=== PATIENT | female | born 1945 | race Caucasian/White ===

== ENCOUNTER → 2023-08-07 07:51 | Outpatient (REF) | payer MEDICARE, BC, SELFPAY | LOC: DHCBC/DCA 07:51 | PROVIDERS: ATTENDING PHYSICIAN Internal Medicine Cardiovascular Disease; FAMILY PHYSICIAN Family Medicine | DX: I25.10 Atherosclerotic heart disease of native coronary artery without angina pectoris (principal); I20.9 Angina pectoris, unspecified | CPT/HCPCS: 78452; 93017; A9500; J2785 ==

== ENCOUNTER → 2023-08-14 08:03 | Outpatient (REF) | payer MEDICARE, SELFPAY | LOC: DHCBS HW 08:03 | PROVIDERS: ATTENDING PHYSICIAN Internal Medicine Cardiovascular Disease; FAMILY PHYSICIAN Internal Medicine Cardiovascular Disease | DX: I25.10 Atherosclerotic heart disease of native coronary artery without angina pectoris (principal); I20.9 Angina pectoris, unspecified | CPT/HCPCS: 93306 ==

== ENCOUNTER → 2023-09-02 13:38 | Outpatient (REF) | payer MEDICARE, SELFPAY | LOC: HWRAD 13:38 | PROVIDERS: ATTENDING PHYSICIAN Obstetrics & Gynecology; FAMILY PHYSICIAN Family Medicine | DX: N20.0 Calculus of kidney (principal) | CPT/HCPCS: 76770 ==

== ENCOUNTER → 2023-11-13 15:21 | Outpatient (REF) | payer MEDICARE, BC, SELFPAY | LOC: HWRAD 15:21 | PROVIDERS: ATTENDING PHYSICIAN Internal Medicine Endocrinology, Diabetes & Metabolism; FAMILY PHYSICIAN Family Medicine; OTHER PHYSICIAN Obstetrics & Gynecology Gynecology | DX: M81.0 Age-related osteoporosis without current pathological fracture (principal) | CPT/HCPCS: 77080 ==

== ENCOUNTER → 2023-12-11 09:00 | Outpatient (REF) | payer MEDICARE, BC, SELFPAY | LOC: DHSLP 09:00 | PROVIDERS: ATTENDING PHYSICIAN Internal Medicine; FAMILY PHYSICIAN Family Medicine | DX: G47.33 Obstructive sleep apnea (adult) (pediatric) (principal); R09.02 Hypoxemia | CPT/HCPCS: 95800 ==

== ENCOUNTER 2024-01-13 06:30 | Day surgery (SDC) | payer MEDICARE, BC, SELFPAY ==
[2024-01-13] VITALS (13 sets, daily range): BP systolic 119–146; BP diastolic 69–104; BMI 30.2
[2024-01-13 07:23] LABS: % Basophils 0.6 % (0-2); % Eosinophils 3.9 % (0-6); % Immature Granulocytes 0.5 % (0-0.5); % Lymphocytes 25.8 % (20.5-51.1); % Monocytes 12.8 % (1.7-9.3); % Neutrophils 56.4 % (42.2-75.2); Absolute Eosinophils 0.3 10^3/uL (0-0.7); Absolute Lymphocytes 1.7 10^3/uL (1.2-3.4); Absolute Monocytes 0.8 10^3/uL (0.1-0.6); Absolute Neutrophils 3.6 10^3/uL (1.4-6.5); Hematocrit 31.5 % (37.0-47.0); Hemoglobin 11.3 g/dL (12.0-16.0); Mean Corp Hgb Conc. 35.9 g/dL (33.0-37.0); Mean Corpuscular Hgb 35.2 pg (27.0-31.0); Mean Corpuscular Volume 98.1 fL (81.0-99.0); Mean Platelet Volume 10.2 fL (7.4-10.4); Nucleated Red Blood Cells % 0 %; Platelet Count 301 10^3/uL (130-400); Red Blood Cell Count 3.21 10^6/uL (4.20-5.40); Red Cell Dist. Width 15.5 % (11.5-14.5); White Blood Cell Count 6.4 10^3/uL (4.8-10.8)
[2024-01-13] MEDS: LOW STRENGTH ASPIRIN 81 MG PO (07:24)
[2024-01-13 08:02] LABS: Blood Urea Nitrogen 21 mg/dl (7-17); Calcium 9.7 mg/dl (8.4-10.2); Carbon Dioxide 30 mmol/L (22-30); Chloride 99 mmol/L (98-107); Estimated Creatinine Clearance 60 ml/min; Glucose 107 mg/dl (70-99); Potassium 3.3 mmol/L (3.5-5.1); Sodium 136 mmol/L (135-145); eGFR > 60.00
[2024-01-13 09:17] LABS: ACT-LR - POC 226 Seconds (116-155)
[2024-01-13 09:25] LABS: ACT-LR - POC 255 Seconds (116-155)
[2024-01-13 09:47] LABS: ACT-LR - POC 300 Seconds (116-155)
[2024-01-13 10:00] LABS: ACT-LR - POC 287 Seconds (116-155)
--- NOTE | 2024-01-13 10:31 | ITS.CL.CATH ---
[facility] - Catheterization
Cardiac Catheterization
Procedure Report:
LEFT HEART CATH AND CORONARY INTERVENTION
Date of Procedure: January 13, 2024
Referring: Dr. Beatrice Guerra
PROCEDURES:
1. Left heart catheterization with coronary and single-plane left ventriculography
2. Hemodynamic assessment of LAD, ramus intermedius, and circumflex using a [place] Omni wire.
INDICATION: This is a 78-year-old female with a past medical history notable for hypertension and hyperlipidemia. She experienced a few episodes of substernal chest tightness and has not experienced any recurrence in symptoms since increasing her
isosorbide, however, she continues to report exertional dyspnea. A recent Lexiscan Myoview stress study in July 2023 did not demonstrate significant ischemia. However, in the setting of worsening symptoms the decision was made to proceed with
left heart catheterization to reevaluate coronary anatomy
ACCESS: Right radial artery, 6 [place] sheath
HEMODYNAMICS (mmHg):
AO (s/d, m) : 129/64, 92
LV (s/d) : 133/12
LVEDP : 22
CORONARY FINDINGS
Dominance: Right
LEFT MAIN: Normal
LEFT ANTERIOR DESCENDING: The LAD arises normally from the left main and runs in the anterior interventricular groove. There is a 40% stenosis in the proximal-mid LAD at the origin of the first diagonal branch which arises very proximally from the
LAD. The mid LAD beyond the second diagonal branch has a 40% tubular narrowing and focal 60% stenosis. The mid to distal LAD has only minor irregularities.
RAMUS: The ramus intermedius is a' small-medium caliber vessel that has minor ostial narrowing and no focal obstructive stenosis. The origin of the ramus was never well-visualized, however, the iFR with the Omni wire in the mid portion of the ramus
intermedius serially measured 1.0
CIRCUMFLEX: The circumflex has an acute origin from the distal left main with associated 30% ostial narrowing. The iFR in the mid circumflex measured above the ischemic threshold at 0.98, 0.97, and 0.97
RIGHT CORONARY: The right coronary artery is a medium caliber dominant vessel. There is a 20% proximal RCA tapering with no pressure dampening on engagement of a 6 [place] diagnostic catheter. The remainder of the RCA has only minor luminal
irregularities over its course. The PDA and posterolateral branch appear widely patent.
VENTRICULOGRAPHY: Left ventriculography is performed in an MEDINA projection. At the digital single-plane left ventricular ejection fraction is estimated at 60%
HEMODYNAMIC ASSESSMENT OF THE LAD, RAMUS, AND CIRCUMFLEX WITH A [place] OMNI WIRE: The origin of the left main was cannulated with a 6 Fr EBU 3.0 guide catheter. Intravenous heparin was administered and the ACT was followed during the procedure.
Two hundred micrograms of intracoronary nitroglycerin was administered through the guide catheter. A [place] Omni wire was advanced to the guide catheter tip and normalized to guide catheter pressure. The Omni wire was then carefully manipulated
across the stenosis in the proximal-mid and mid LAD where the iFR 6 just below the ischemic threshold at 0.88, 0.88 and 0.87. A pullback gradient in the iFR was measured with the large step up noted across the more distal of the LAD stenosis and a
minor step up noted across the more proximal lesion with normalization near the guide catheter. The Omni wire was redirected to the ramus where the iFR serially measured 1.0, 1.0, and 1.0. The Omni wire was then withdrawn and redirected to the
circumflex where the iFR serially measured above the ischemic threshold at 0.98, 0.97, and 0.97. The Omni wire was withdrawn to the guide catheter confirming no significant baseline draft.
ANGIOPLASTY PROCEDURE DETAIL: The hemodynamic data was reviewed and the decision was made to proceed with stenting of the mid LAD across the region where the pullback measurement suggested the most significant of the LAD narrowing. Intravenous
heparin was administered and the ACT was followed throughout the procedure. A BMW guidewire crossed the more proximal and distal lesions and the tip of the wire was advanced to the apical LAD. Primary stenting was performed with implantation of a
3.0 x 22 mm [place]ennys stent that was implanted at nominal pressures then postdilated to high pressures with a 3.0 mm noncompliant balloon to 18 tessie.
RADIATION SUMMARY: Fluoro Time (min): 13.7, Dose (mGy): 767, DAP (Gy.cm2) : 49.5
CONCLUSIONS
1. Successful stenting of the mid LAD with a 3.0 x 22 mm [place] stent that was implanted at nominal pressures and postdilated to 18 tessie with a 3.0 mm noncompliant balloon
2. Moderate coronary disease in the proximal-mid LAD and near the ostium of the circumflex. The iFR in the circumflex measured above the ischemic threshold. The stenosis in the LAD was found to be hemodynamically stable with the largest step up
in Pd/Pa noted across the more distal lesion.
3. Preserved LV systolic function
RECOMMENDATIONS
1. Uninterrupted dual antiplatelet therapy for 6 months with aspirin and clopidogrel
2. High intensity statin for goal LDL cholesterol closer to 55 mg/dL
3. Aggressive blood pressure
Copy to: Dr. Beatrice Guerra
--- NOTE | 2024-01-13 14:53 | W.PN.UPDATE ---
Update Note
Progress Note Update
78 yo WF s/p PCI LAD (same day). She feels good, no cp, sob, marlon diet, voiding, R rad site with TR band, EKG SR no ST changes. She will be on DAPT ASA/Plavix. Cardiac rehab c/s. She will f/u DCA in 1 mo. SHe is for d/c home after 3pm if rad site
stable.
CONCLUSIONS
1. Successful stenting of the mid LAD with a 3.0 x 22 mm Dennys stent that was implanted at nominal pressures and postdilated to 18 tessie with a 3.0 mm noncompliant balloon
2. Moderate coronary disease in the proximal-mid LAD and near the ostium of the circumflex. The iFR in the circumflex measured above the ischemic threshold. The stenosis in the LAD was found to be hemodynamically stable with the largest step up
in Pd/Pa noted across the more distal lesion.
3. Preserved LV systolic function
RECOMMENDATIONS
1. Uninterrupted dual antiplatelet therapy for 6 months with aspirin and clopidogrel
2. High intensity statin for goal LDL cholesterol closer to 55 mg/dL
3. Aggressive blood pressure
Copy to: Dr. Beatrice Guerra
[2024-01-13] MEDS: KCL 20 MEQ PO (15:37)
== END 2024-01-13 15:52 | disposition home or self-care (01) ==
LOC: CATH 06:30
PROVIDERS: ATTENDING PHYSICIAN Internal Medicine Interventional Cardiology; FAMILY PHYSICIAN Family Medicine; OTHER PHYSICIAN Internal Medicine Cardiovascular Disease
DX: I25.10 Atherosclerotic heart disease of native coronary artery without angina pectoris (principal); E78.5 Hyperlipidemia, unspecified; I10 Essential (primary) hypertension; R07.89 Other chest pain; R06.09 Other forms of dyspnea; Z79.02 Long term (current) use of antithrombotics/antiplatelets; Z79.82 Long term (current) use of aspirin; Z79.890 Hormone replacement therapy; Z79.899 Other long term (current) drug therapy; K21.9 Gastro-esophageal reflux disease without esophagitis
CPT/HCPCS: 80048; 85025; 93005; 93458; 93571; 93572; C1725; C1769; C1874; C1887; C1894; C9600; Q9967

== ENCOUNTER 2024-02-13 06:50 | Outpatient (RCR) | payer MEDICARE, BC, SELFPAY | END 2024-02-13 23:59 | disposition home or self-care (01) | LOC: CRHB 06:50 | PROVIDERS: ATTENDING PHYSICIAN Internal Medicine Cardiovascular Disease | DX: I25.10 Atherosclerotic heart disease of native coronary artery without angina pectoris (principal); Z95.5 Presence of coronary angioplasty implant and graft | CPT/HCPCS: 93798; G0422; G0423 ==

== ENCOUNTER 2024-03-15 09:01 | Outpatient (RCR) | payer MEDICARE, BC, SELFPAY | END 2024-03-15 23:59 | disposition home or self-care (01) | LOC: CRHB 09:01 | PROVIDERS: ATTENDING PHYSICIAN Internal Medicine Cardiovascular Disease | DX: I25.10 Atherosclerotic heart disease of native coronary artery without angina pectoris (principal); Z95.5 Presence of coronary angioplasty implant and graft | CPT/HCPCS: 93798 ==

== ENCOUNTER 2024-03-24 08:47 | Outpatient (RCR) | payer MEDICARE, BC, SELFPAY | END 2024-03-29 10:38 | disposition home or self-care (01) | LOC: CRHB 08:47 | PROVIDERS: ATTENDING PHYSICIAN Internal Medicine Cardiovascular Disease | DX: I25.10 Atherosclerotic heart disease of native coronary artery without angina pectoris (principal); Z95.5 Presence of coronary angioplasty implant and graft | CPT/HCPCS: 93798 ==

== ENCOUNTER 2024-04-19 14:07 | Observation (INO) | payer MEDICARE, BC, SELFPAY ==
[2024-04-19 08:27] VITALS: BP 147/94
[2024-04-19 08:59] VITALS: BMI 30.2
--- NOTE | 2024-04-19 09:17 | ED.GENMED ---
History of Present Illness
General
Chief Complaint: Abdominal Pain
Source: patient
Exam Limitations: none
Time Seen by Provider: 04/19/24 08:46
Nursing documentation reviewed up to this point in time: agreed with
History of Present Illness
History of Present Illness:
Patient is a 78-year-old female with CAD recent stent January 2024 on Plavix, reflux, hypertension sleep apnea presents to the ER for evaluation. Patient reports last night she had pain across her back around 9 PM. She thought this was reflux. She
ate dinner around 6:30 PM. She typically has got reflux like this in the past and took Pepto-Bismol and it resolved last night. She had difficulty sleeping because of a recent new sleep apnea machine and was up when around 4 PM she had sudden
onset of pain which she describes as squeezing in the right side of her abdomen/back region under her rib. She reports since then she has had intermittent episodes that that occur every 5 minutes which last for about 10 seconds at a time which she
describes as squeezing. She does not feel this is in her abdomen. She points to her flank and under her rib area. She has a history of having prior cholecystectomy.
She denies any recent injury fever chills. She denies any chest pain.
She denies any urinary frequency urgency or dysuria. No prior history kidney stones
Past History
Past History
ED Past Medical History: GERD, HTN, Hypercholesterolemia, Hypothyroidism and Psychiatric
ED Past Surgical History: Cholecystectomy, Gynecological (Breast reduction) and Other (Thyroidectomy)
Social History
Tobacco: Non-smoker
Alcohol: None
Personal:
Living: with family
Employment: Retired
Family History
Family History: Other (Noncontributory)
Review of Systems
Review of Systems
Allergies reviewed?: Yes
All Other Systems: ROS reviewed and negative except as documented in HPI and ROS
Constitutional: Reports no symptoms; Denies fever, fatigue or chills
Respiratory: Denies trouble breathing
Cardiac: Denies chest pain
ABD/GI: Reports abdominal pain (pain right flank under rib region ); Denies vomiting
: Reports no symptoms; Denies frequency, incontinence, difficulty voiding or bleeding
Musculoskeletal: Reports back pain (had back pain last night )
Skin: Reports no symptoms
Neurological: Reports no symptoms
Hematologic/Lymphatic: Reports no symptoms
Psychiatric: Reports no symptoms
Phy Exam
General Physical Exam
General Presentation: no apparent distress
General age: appears stated age
General Skin: warm and dry
General Habitus: normal
General Mental: alert
General Hydration: appears well hydrated
Cardiovascular Exam
Cardiovascular Exam: regular rate/rhythm, no murmur and normal peripheral pulses
Pulmonary Exam
Pulmonary Exam: lungs clear, no respiratory distress and no rales
Gastrointestinal Exam
Gastrointestinal Exam: non tender and soft
Neurological Exam
Neurological Exam: alert and oriented x3
Musculoskeletal Exam
Musculoskeletal Exam: full ROM
Skin Exam
Skin Exam: normal color and warm/dry
Psychiatric Exam
Psychiatric Exam: normal mood/affect
Course
Orders/Labs/Results
Orders:
Orders
04/19/24 09:13
Electrocardiogram (*1) Stat
Reason for Study: Other
Other Reason for Exam: chest pain
Cardiac Monitoring- Treatment ONCE
EKG- Treatment ONCE
04/19/24 09:15
CT Abd/pel Without Iv Or Oral Urgent
Comment:
Reason For Exam: right sided abd pain/flank pain
04/19/24 09:18
Complete Blood Count/With Diff Urgent
Comprehensive Metabolic Panel Urgent
D-Dimer Urgent
Lipase Urgent
Troponin I Urgent
04/19/24 09:59
Urinalysis Reflex To Culture Urgent
Date Specimen was Collected: 04/19/24
Time Specimen was Collected: 09:58
Urine Microscopic Reflex Cult Urgent
Urine Culture Urgent
CUATE Source: U
Specimen Description:
Date Specimen was Collected: 04/19/24
Time Specimen was Collected: 09:58
04/19/24 12:13
MRI Abdomen [MR Abdomen W/o & W Contrast] Urgent
Comment: with MRCP
Reason For Exam: r/o CBD stone
OK for patient to be off Cardiac Monitoring for MRI: Yes
Recent pill cam endoscopy?: No
Abnormal Lab Results
04/19/24 04/19/24
09:18 09:59
RBC 3.37 L 10^6/uL
(4.20-5.40)
Hct 33.5 L %
(37.0-47.0)
MCV 99.4 H fL
(81.0-99.0)
MCH 35.6 H pg
(27.0-31.0)
RDW 14.9 H %
(11.5-14.5)
Absolute Lymphs (auto) 1.0 L 10^3/uL
(1.2-3.4)
Absolute Monos (auto) 0.8 H 10^3/uL
(0.1-0.6)
Immature Gran % 0.6 H %
(0-0.5)
Lymphocytes % 13.9 L %
(20.5-51.1)
Monocytes % 12.0 H %
(1.7-9.3)
Potassium 3.3 L mmol/L
(3.5-5.1)
Chloride 96 L mmol/L
(98-107)
BUN 21 H mg/dl
(7-17)
Glucose 120 H mg/dl
(70-99)
Total Bilirubin 1.4 H mg/dl
(0.2-1.3)
Alkaline Phosphatase 129 H U/L
(38-126)
Leukocyte Esterase Rfl 1+ A
(Negative)
04/19/24 09:18
04/19/24 09:18
Vital Signs
Initial and Last Documented VS:
Initial Vital Signs
Temp Pulse Resp BP Pulse Ox
98.6 F 84 16 147/94 95
04/19/24 08:27 04/19/24 08:27 04/19/24 08:27 04/19/24 08:27 04/19/24 08:27
Last Documented Vital Signs
Temp Pulse Resp BP Pulse Ox
98.6 F 73 18 130/67 93
04/19/24 08:27 04/19/24 12:27 04/19/24 12:27 04/19/24 12:27 04/19/24 12:27
MDM/Problems Addressed
Differential Diagnosis Includes:
not limited to: PE renal colic, less likely cad , stone in biliary duct
MDM/Problems Addressed:
78-year female presents to the ER complaining of pain to the right side Underneath her rib area off and on since last night. It is intermittent. She does have history of cholecystectomy, on e xam she is nontender. CAT scan however does show
increasing common bile duct of 12 mm which is slightly greater than 20 of 7 and her bilirubin is slightly up at 1.4. She has a cyst from her left kidney which is known. Patient denies any fever chills she is afebrile with normal white count. She
did have an episode of back pain last night does have a history of CAD and troponin was done and negative she denies any shortness of breath D-dimer also negative. Vital signs stable. She is afebrile Case reviewed with Dr. Navarro , physician did
see pt.
*Radiology
Radiology exam reviewed: radiology read reviewed
*Pulse Oximetry
Patient hypoxic: no
*Critical Care Note
Total Time (30-74mins, 75-104mins- exclusive of procedures): Not Applicable
Patient Management
Discussion with other providers: Director Banking (Gi DR Navarro )
ED Attending Note
-
Portions of this chart may have been created with voice recognition software.� Occasional wrong word or��sound alike� substitutions may have occurred due to the inherent limitations of voice recognition software.
Discharge Plan
Departure
Patient Disposition: Admit
Date of Disposition: 04/19/24
Time of Disposition: 13:07
Admit to: Med/Surg
Admit to doctor: hospitailst
Presentation/result/management discussed w/ accepting MD/DO: Hospitalist
Patient with high blood pressure during this ER visit?: Yes
Condition: Fair
Covid-19: Not Applicable
Discharge Problem:
Abdominal pain
Prescriptions:
No Action
multivitamin Tablet
1 tab PO DAILY
isosorbide mononitrate 30 mg Tablet Extended Release 24 Hr
60 mg PO DAILY
metoprolol succinate [Toprol XL] 100 mg Tablet Extended Release 24 Hr
100 mg PO DAILY
amlodipine 2.5 mg Tablet
5 mg PO DAILY
lorazepam 0.5 mg Tablet
0.5 mg PO TID PRN (Reason: ANXIETY)
nitroglycerin 0.4 mg Tablet, Sublingual
0.4 mg SUBLINGUAL Q5-15M PRN (Reason: CHEST PAIN)
hydrochlorothiazide 25 mg Tablet
25 mg PO DAILY
estradiol 0.01 % (0.1 mg/gram) Cream
1 g VAGINAL SUWE
rosuvastatin 20 mg Tablet
20 mg PO HS
duloxetine 60 mg Capsule,Delayed Release(Dr/Ec)
60 mg PO HS
cranberry extract [Ellura] 200 mg Capsule
200 mg PO DAILY
Probiotic 3 billion cell Capsule
3,000 mmu cells PO DAILY
aspirin 81 mg Capsule
81 mg PO HS
levothyroxine 137 mcg Tablet
137 mcg PO .6DAYSPERWEEK
Rx Instructions:
not sundays
cholecalciferol (vitamin D3) [Vitamin D3] 25 mcg (1,000 unit) Tablet,Chewable
25 mcg PO DAILY
clopidogrel 75 mg tablet
75 mg PO DAILY Qty: 90 10RF
pantoprazole 40 mg tablet,delayed release (DR/EC)
40 mg PO DAILY Qty: 90 10RF
Referrals:
Miguel Washington MD [Family Provider] -
Interventions
Interventions:
*Risk Screen - Suicide Last Done: 04/19/24 08:29
*General Assessment Last Done: 04/19/24 08:56
*Neglect/Abuse Screening Last Done: 04/19/24 08:29
ED- Fall Risk Assessment Last Done: 04/19/24 08:56
*ED COVID-19 Vaccine History Last Done: 04/19/24 08:29
DH-Ihvhgc-Ffwkxzygiy Assessment Last Done: 04/19/24 08:56
Discharge Date and Time
Print Language: BRUNEIAN
[2024-04-19 09:32] LABS: % Basophils 0.6 % (0-2); % Eosinophils 2.1 % (0-6); % Immature Granulocytes 0.6 % (0-0.5); % Lymphocytes 13.9 % (20.5-51.1); % Neutrophils 70.8 % (42.2-75.2); Absolute Eosinophils 0.2 10^3/uL (0-0.7); Absolute Monocytes 0.8 10^3/uL (0.1-0.6); Hematocrit 33.5 % (37.0-47.0); Mean Corp Hgb Conc. 35.8 g/dL (33.0-37.0); Mean Corpuscular Hgb 35.6 pg (27.0-31.0); Mean Corpuscular Volume 99.4 fL (81.0-99.0); Nucleated Red Blood Cells % 0.3 %; Platelet Count 321 10^3/uL (130-400); Red Blood Cell Count 3.37 10^6/uL (4.20-5.40); Red Cell Dist. Width 14.9 % (11.5-14.5)
[2024-04-19 09:41] LABS: D-Dimer 0.41 ug/mlFEU (0.00-0.50)
[2024-04-19 09:42] LABS: ALT (SGPT) 18 U/L (0-35); AST (SGOT) 29 U/L (14-36); Albumin 4.5 g/dl (3.5-5.0); Alkaline Phosphatase 129 U/L (38-126); Blood Urea Nitrogen 21 mg/dl (7-17); Calcium 9.3 mg/dl (8.4-10.2); Carbon Dioxide 29 mmol/L (22-30); Chloride 96 mmol/L (98-107); Estimated Creatinine Clearance 67 ml/min; Glucose 120 mg/dl (70-99); Lipase 87 U/L (23-300); Potassium 3.3 mmol/L (3.5-5.1); Sodium 138 mmol/L (135-145); Total Bilirubin 1.4 mg/dl (0.2-1.3); eGFR > 60.00
[2024-04-19 09:53] LABS: Troponin I < 0.012 ng/ml
[2024-04-19 10:10] LABS: Urine Albumin Negative (Neg - Trace); Urine Bilirubin Negative (Negative); Urine Character Clear (Clear); Urine Color Yellow; Urine Glucose Negative (Negative); Urine Ketone Negative (Negative); Urine Leukocyte 1+ (Negative); Urine Nitrite Negative (Negative); Urine Occult Blood Negative (Negative); Urine Urobilinogen Negative (Neg - 1+)
[2024-04-19 10:32] LABS: Urine Squamous Cell >30 /LPF (Few)
[2024-04-19 10:33] LABS: Urine Amorphous Seen
[2024-04-19 10:34] LABS: Urine Red Blood Cell 0-2 /HPF (0-2)
--- NOTE | 2024-04-19 11:01 | CON.GI ---
Consultation
-
Date/Time Consultation Requested: 04/19/2024
Date/Time Consultation Performed: 04/19/24 11.15 am
Requesting Provider: Jessica Hansen RN
Performing Provider: Sonia Lawson MD
Reason for Consultation: Abdominal pain with CBD dilataion
Medical History
Chief Complaint / HPI
Chief Complaint: Right sided abdominal pain
History of Present Illness:
The patient is a 78-year-old female who presented to ER this morning complaining from right sided abdominal pain. She reports that her pain started in this morning ~4.00 am and it was like a stabbing pain. Reported her pain is waxing and weaning and
repeats every 5-10 minutes and longs 5-10 seconds. She denies similar pain before, denies any color change with her stool and urine. She had her gallbladder removed in 1972 and denies any abdominal pain/surgery since then. Her last BM was this
morning and it was in a normal form. Reports she had her bowel movement changed in recent few weeks and has the feeling of she can not empty enough her bowels. She also reported having dark colored stool for a few days after she was started on
Plavix in January 2024 and it longed 3-4 days. Following, she did not have any stool color change. She also reported having back pain last night and her pain resolved after she took Pepto-Bismol and she has been experiencing this pain for years.
Additionally she reported that she was diagnosed with UTI in back February 2024 due needing to hold her urine during a vacation in [facility]. She denies having fever spikes/burning with urinating/increased frequency with urinating.
Past Medical History
Past Medical History: CAD (CAD recent stent January 2024 on Plavix), GERD, HTN, Hypercholesterolemia, Hypothyroidism and Psychiatric
Past Surgical History: Other ( Cholecystectomy, Gynecological (Breast reduction) and Other (Thyroidectomy))
Social History
Tobacco: Non-Smoker
Alcohol: None
Drug: None
Personal:
Living: With Family
Employment: Retired
Family History
Family History: Reviewed & Not Pertinent and Other (colon cancer running in the family )
Allergies / Home Medications
Allergy/AdvReac Type Severity Reaction Status Date / Time
JENNY Inhibitors Allergy COUGH Verified 01/13/24 07:07
cephalexin [From Keflex] Allergy Nausea Verified 01/13/24 07:07
melon Allergy SCRATCHY Verified 01/13/24 07:07
THROAT
nitrofurantoin Allergy Nausea / Verified 01/13/24 07:07
[From Macrobid] Vomiting
Sulfa (Sulfonamide Allergy Rash Verified 01/13/24 07:07
Antibiotics)
sulfamethoxazole Allergy Unknown Verified 01/13/24 07:07
trimethoprim Allergy Unknown Verified 01/13/24 07:07
valsartan [From Diovan] Allergy COUGH Verified 01/13/24 07:07
atorvastatin [From Lipitor] AdvReac MYALGIAS Verified 01/13/24 07:07
hydrocodone [From Vicodin] AdvReac Nausea / Verified 01/13/24 07:07
Vomiting
�Medication �Instructions �Recorded
amlodipine 2.5 mg tablet 5 mg PO DAILY 02/13/23
aspirin 81 mg capsule 81 mg PO HS 02/13/23
cranberry extract 200 mg capsule 200 mg PO DAILY 02/13/23
(Ellura)
duloxetine 60 mg capsule,delayed 60 mg PO HS 02/13/23
release
estradiol 0.01% (0.1 mg/gram) 1 g vaginal SUWE 02/13/23
vaginal cream
hydrochlorothiazide 25 mg tablet 25 mg PO DAILY 02/13/23
isosorbide mononitrate 30 mg 60 mg PO DAILY 02/13/23
tablet,extended release 24 hr
lactobacillus combination no.4 3 3,000 mmu cells PO DAILY 02/13/23
billion cell capsule (Probiotic)
lorazepam 0.5 mg tablet 0.5 mg PO TID PRN ANXIETY 02/13/23
metoprolol succinate 100 mg 100 mg PO DAILY 02/13/23
tablet,extended release 24 hr
(Toprol XL)
multivitamin 1 tab PO DAILY 02/13/23
nitroglycerin 0.4 mg sublingual 0.4 mg sublingual Q5-15M PRN CHEST 02/13/23
tablet PAIN
rosuvastatin 20 mg tablet 20 mg PO HS 02/13/23
levothyroxine 137 mcg tablet 137 mcg PO .6DAYSPERWEEK 02/24/23
cholecalciferol (vitamin D3) 25 25 mcg PO DAILY 01/13/24
mcg (1,000 unit) chewable tablet
(Vitamin D3)
clopidogrel 75 mg tablet 75 mg PO DAILY #90 tabs 01/13/24
pantoprazole 40 mg tablet,delayed 40 mg PO DAILY #90 tabs 01/13/24
release
Review of Systems
-
History Source: Patient
All other systems: A 12 pt ROS was Negative except as stated above in HPI
EENT: Reports No Symptoms
Respiratory: Reports No Symptoms
Cardiac: Reports No Symptoms
Abdomen/GI: Reports Pain
: Reports No Symptoms
Musculoskeletal: Reports No Symptoms
Skin: Reports No Symptoms
Neurological: Reports No Symptoms
Vital Signs
Temp Pulse Resp BP Pulse Ox
98.6 F 84 16 147/94 95
04/19/24 08:27 04/19/24 08:27 04/19/24 08:27 04/19/24 08:27 04/19/24 08:27
Physical Exam
Exam
General: Well Developed and Well Nourished
HEENT: Normocephalic, Anicteric and Moist Mucous Membranes
Respiratory: Clear
Cardiac: S1/S2, Regular Rhythm and Murmur
Breast: Deferred by me
GI: Soft, Non Tender, Non Distended and Tender (minimal to moderate tenderness on periumbilical area and on the mid-right sided abdominal area)
Musculoskeletal: No Clubbing and No Cyanosis
Skin: Warm
Neuro: Awake, Alert, Oriented and AO x 3
Psych: Calm
Results
WBC 7.0 10^3/uL (4.8-10.8) 04/19/24 09:18
Hgb 12.0 g/dL (12.0-16.0) 04/19/24 09:18
Hct 33.5 % (37.0-47.0) L 04/19/24 09:18
MCV 99.4 fL (81.0-99.0) H 04/19/24 09:18
Plt Count 321 10^3/uL (130-400) 04/19/24 09:18
Absolute Neuts (auto) 5.0 10^3/uL (1.4-6.5) 04/19/24 09:18
Sodium 138 mmol/L (135-145) 04/19/24 09:18
Potassium 3.3 mmol/L (3.5-5.1) L 04/19/24 09:18
Chloride 96 mmol/L (98-107) L 04/19/24 09:18
Carbon Dioxide 29 mmol/L (22-30) 04/19/24 09:18
BUN 21 mg/dl (7-17) H 04/19/24 09:18
Creatinine 0.7 mg/dL (0.6-1.0) 04/19/24 09:18
Calcium 9.3 mg/dl (8.4-10.2) 04/19/24 09:18
Total Bilirubin 1.4 mg/dl (0.2-1.3) H 04/19/24 09:18
AST 29 U/L (14-36) 04/19/24 09:18
ALT 18 U/L (0-35) 04/19/24 09:18
Alkaline Phosphatase 129 U/L (38-126) H 04/19/24 09:18
Lipase 87 U/L (23-300) 04/19/24 09:18
Diagnostic Image Results:
04/19/24: Abdominal/Pelvis CT
IMPRESSION:
Coronary artery calcifications and/or extensor present. Please correlate with symptoms of and risk factors for coronary artery disease, with further workup as clinically appropriate.
Lobulated cyst arising in the medial upper pole the left kidney, as seen on renal and bladder ultrasound from September 02, 2023.
Numerous colonic diverticula with no CT evidence for diverticulitis.
Status post cholecystectomy. Slight dilation of the common hepatic duct and common bile duct, measuring up to 12 mm. Measurement is slightly greater than examination of December 2006. If further imaging evaluation is desired, consideration for MRI of
the abdomen/MRCP.
Right-sided fat-containing indirect inguinal hernia, increased compared to examination of December 2006. No findings for strangulation or inflammation of the herniated fat.
No evidence for urinary tract calculi.
Bony degenerative changes as described.
Prior GI Procedures:
EGD: 07/03/17
Findings:
The examined duodenum was normal until the 2nd portion.
Patchy mildly erythematous mucosa was found in the gastric antrum.
Biopsies were taken with a cold forceps for histology.
A small hiatal hernia was present.
The Z-line was regular and was found 36 cm from the incisors.
No gross lesions were noted in the entire esophagus.
Impression: - Normal examined duodenum.
- Erythematous mucosa in the antrum. Biopsied.
- Small hiatal hernia.
- Z-line regular, 36 cm from the incisors.
- No gross lesions in esophagus.
Recommendation: - Await pathology results.
- Use Prilosec (omeprazole) 20 mg PO daily.
- Follow an antireflux regimen. Keep the head of the bed
upto 30 degree angle at bedtime (can use a mattress
elevator).
- Telephone GI clinic for pathology results in 2 weeks.
Colonoscopy: 11/05/22
Impression: - The examined portion of the ileum was normal.
- One 4 mm polyp in the transverse colon, removed with
a cold snare. Resected and retrieved.
- One 2 mm polyp in the rectum, removed with a jumbo
cold forceps. Resected and retrieved.
- Diverticulosis in the sigmoid colon.
Recommendation: - Await pathology results.
- Repeat colonoscopy in 5 years for surveillance.
- Telephone GI clinic for pathology results in 2 weeks.
- Resume previous diet.
- No ibuprofen, naproxen, or other non-steroidal
anti-inflammatory drugs for 5 days after polyp removal.
Assessment / Plan
-
Impression: The patient is a a 78-year-old female who had PMH of CAD with stents, GERD, HTN, Hypercholesterolemia, Hypothyroidism and Cholecystectomy in 1972. She presented to ER this morning complaining from right sided abdominal pain and
Pelvis/Abd CT showed common bile duct dilatation and no evidence for diverticulitis. Patient reported her pain is not consistent and it is waxing and weaning. She denies any pain on the upper abdominal area and points her pain mostly in the right
sided mid-abdominal area. She denies any color change with her stool/urine, denies constipation. WBC 7.0, Hgb 12.0, BUN 21, Cre 0.7, Na 138, K 3.3, TB 1.4 (mildly elevated comparing to previous results),AST 29, ALT 14, ALP 129 (likely at baseline).
Assessment /Plan
#Right Sided Abdominal Pain
-Hx of Cholecystectomy in 1972 no complaint since then
-No urine/stool color change
-TB mildly elevated,
-Pel/Abd CT: Shows dilatation in CBD
-MRI Abdomen with MRCP was planned
#Hx of Melena and GERD
-A few episodes of melena in January after started on Plavix and did not repeat since then.
-No signs of active GI bleeding:hgb 12
-Hx of GERD, last endoscopy in 2017
-Recommended to schedule an endoscopy at OP setting
-Last colonoscopy in 2022 with biopsy reporting:Hyperplastic polyp
-
-
Thank you for consultation and allowing me to participate in the patient's care. Please call the senior director of [employer] GI physician during the after hours with any questions or concerns.
[2024-04-19 12:27] VITALS: BP 130/67
--- NOTE | 2024-04-19 13:07 | HPS.HSE ---
Family Physician
-
Family Physician: Miguel Washington
Chief Complaint
-
Flank Pain
History of Present Illness
Patient is a 78 y/o female past medical history of CAD, HTN, and GERD who presents with right flank pain. Patient reports pains started around 4AM this morning. She reports a constant dull ache with occasional sharp stabbing 'zap'. She denies
nausea, vomiting, diarrhea or constipation. She denies fevers, sweats or chills.
Medical History
Past Medical History
Past Medical History: Reports Other
Additional Past Medical History:
Coronary Artery Disease s/p LAD Stent in December 2023
Essential Hypertension
Hyperlipidemia
GERD / Prior H. Pylori
Depression
Thyroid Cancer
Past Surgical History: Reports Other
Additional Past Surgical History:
Thyroidectomy
Cholecystectomy
Bladder Sling
Tonsillectomy
Breast Reduction
Oophorectomy
Social History
Tobacco: Non-smoker
Alcohol: None
Employment: Retired
Family History
Family History: Other (Father: Colon Cancer, Heart Disease; Mother: Ovarian Cancer, Heart Disease)
Allergies / Home Medications
Allergies reflects when Allergies were last updated in [employer].
Home Medications with original date entered in [employer]
Allergy/Medication List:
Allergies
Allergy/AdvReac Type Severity Reaction Status Date / Time
JENNY Inhibitors Allergy COUGH Verified 01/13/24 07:07
cephalexin [From Keflex] Allergy Nausea Verified 01/13/24 07:07
melon Allergy SCRATCHY Verified 01/13/24 07:07
THROAT
nitrofurantoin Allergy Nausea / Verified 01/13/24 07:07
[From Macrobid] Vomiting
Sulfa (Sulfonamide Allergy Rash Verified 01/13/24 07:07
Antibiotics)
sulfamethoxazole Allergy Unknown Verified 01/13/24 07:07
trimethoprim Allergy Unknown Verified 01/13/24 07:07
valsartan [From Diovan] Allergy COUGH Verified 01/13/24 07:07
atorvastatin [From Lipitor] AdvReac MYALGIAS Verified 01/13/24 07:07
hydrocodone [From Vicodin] AdvReac Nausea / Verified 01/13/24 07:07
Vomiting
Home Medications
duloxetine 60 mg capsule,delayed release 60 mg PO HS 02/13/23
estradiol 0.01% (0.1 mg/gram) vaginal cream 1 g vaginal SUWE 02/13/23
hydrochlorothiazide 25 mg tablet 25 mg PO DAILY 02/13/23
isosorbide mononitrate 30 mg tablet,extended release 24 hr 30 mg PO DAILY 02/13/23
lorazepam 0.5 mg tablet 0.5 mg PO TIDPRN PRN ANXIETY 02/13/23
metoprolol succinate 100 mg tablet,extended release 24 hr (Toprol XL) 100 mg PO DAILY 02/13/23
multivitamin 1 tab PO DAILY 02/13/23
nitroglycerin 0.4 mg sublingual tablet 0.4 mg sublingual [id number] PRN CHEST PAIN 02/13/23
rosuvastatin 20 mg tablet 20 mg PO HS 02/13/23
levothyroxine 137 mcg tablet 137 mcg PO SUMOTUWETHFR 02/24/23
cholecalciferol (vitamin D3) 25 mcg (1,000 unit) chewable tablet (Vitamin D3) 25 mcg PO DAILY 01/13/24
Lactobac no.2-Bifidobac no.1-S. thermo 112.5 billion cell capsule (Visbiome) 1 cap PO QPM 04/19/24
acetaminophen 325 mg tablet (Tylenol) 650 mg PO Q4HPRN PRN mild pain 04/19/24
amlodipine 5 mg tablet (Norvasc) 5 mg PO DAILY 04/19/24
aspirin 81 mg tablet,delayed release 81 mg PO QPM 04/19/24
clopidogrel 75 mg tablet 75 mg PO QPM 04/19/24
pantoprazole 40 mg tablet,delayed release 40 mg PO QPM 04/19/24
phenazopyridine 95 mg tablet 95 mg PO QPM 04/19/24
Review of Systems
-
A 12 point ROS was completed and negative except as noted: Yes
Constitutional: Denies Fever or Chills
Respiratory: Denies Cough or Trouble Breathing
Cardiac: Denies Chest Pain or Palpitations
Abdomen/GI: Reports See HPI
Physical Exam
Vital Signs
Vital Signs
Temp Pulse Resp BP Pulse Ox
98.6 F 73 18 130/67 93
04/19/24 08:27 04/19/24 12:27 04/19/24 12:27 04/19/24 12:27 04/19/24 12:27
Physical Exam
General: Comfortable and Conversant
HEENT: Anicteric and Moist mucous membranes
Respiratory: Clear and Non Labored Respirations
Cardiac: S1/S2 and Regular Rhythm
GI: Soft, Non Tender and Non Distended
Rectal: Deferred by Provider
Musculoskeletal: No Clubbing, No Cyanosis and No Edema
Skin: Warm and Dry
Neuro: Awake, Alert, Oriented and Nonfocal/grossly intact
Psych: Calm
Laboratory Results
-
04/19/24 09:18
04/19/24 09:18
Laboratory Results
Total Bilirubin 1.4 mg/dl (0.2-1.3) H 04/19/24 09:18
AST 29 U/L (14-36) 04/19/24 09:18
ALT 18 U/L (0-35) 04/19/24 09:18
Alkaline Phosphatase 129 U/L (38-126) H 04/19/24 09:18
Troponin I < 0.012 ng/ml 04/19/24 09:18
Lipase 87 U/L (23-300) 04/19/24 09:18
Impression/Plan
-
Abdominal/Flank Pain - Mildly elevated Total Bilirubin, and Mildly dilated CBD
-Consult GI
-Check Abd MRI/MRCP
-Allow clear liquids
Coronary Artery Disease s/p LAD Stent in December 2023
-Continue aspirin and Plavix
-Continue isosorbide mononitrate
Essential Hypertension
-Continue amlodipine and Toprol XL
-Hold HCTZ
Hyperlipidemia
-Continue Crestor
GERD / Prior H. Pylori
-Continue Protonix
Depression
-Continue duloxetine
Hx Thyroid Cancer s/p Thyroidectomy
-Continue levothyroxine
DVT Proph: SCDs
Code Status: Full Code
[2024-04-19] MEDS: KCL 40 MEQ PO (14:00)
--- NOTE | 2024-04-19 14:14 | W.PN.UPDATE ---
Update Note
Progress Note Update
This is an addendum to the H&P written by Daylin Gutierrez 04/19/2024. Patient seen and examined independently with PA.
78-year-old female past medical history of CAD with history of stent in January, gallstones status post prior cholecystectomy 1972, hypertension, GERD, hypercholesteremia, hypothyroidism, presenting for right upper quadrant abdominal pain rating to
her back starting this morning. She briefly had dark stool after starting Plavix after stent placement but this has resolved.
Labs show hypokalemia. Bilirubin of 1.4. CT abdomen pelvis shows slight dilatation of the common hepatic duct and common bile duct measuring 12 mm. Findings consistent for acute choledocholithiasis. GI consulted and recommended MRCP. Clear
liquid diet. Potassium repletion for hypokalemia secondary to thiazide. Hold hydrochlorothiazide for now.
[2024-04-19 15:30] VITALS: BP 162/86
[2024-04-19 16:21] VITALS: BMI 29.8
[2024-04-19] MEDS: VISBIOME 1 CAP PO (17:17)
[2024-04-19] MEDS: PLAVIX 75 MG PO (17:17)
[2024-04-19] MEDS: ASPIR LOW (ENTERIC COATED) 81 MG PO (17:17)
[2024-04-19] MEDS: PROTONIX 40 MG PO (17:17)
[2024-04-19] MEDS: CRESTOR 20 MG PO (21:35)
[2024-04-19] MEDS: TYLENOL 650 MG PO (21:35)
[2024-04-19] MEDS: CYMBALTA DELAYED RELEASE 60 MG PO (21:35)
[2024-04-19] MEDS: ATIVAN 0.5 MG PO (21:38)
[2024-04-19 23:50] VITALS: BP 100/50
--- NOTE | 2024-04-20 05:35 | W.PN.GI.CBS2 ---
Today's Communication / Plan
-
MRI/MRCP (-) for choledocholithiasis or other concern for sludge. Suspect previous dilatation in setting of CCY. Advance diet as tolerated, see rest of care as outlined below. GI team will sign-off. Please call back with any questions or concerns.
Assessment / Plan
-
#RUQ Abdominal Pain
#Hx of CCY
This is a 78 y.o female with past medical history of HTN, HLD, hypothyroidism, GERD, CAD (on ASA and plavix), and cholelithiasis s/p prior CCY who presented to the ED with RUQ abdominal pain around 0400 AM. Denies any prior similar symptoms or
nausea/vomiting. Intermittent but became progressively worse prompting her to come to the ED. No other fevers/chills or other constitutional symptoms. No other dark and/or bloody stools. She is on DAPT for her previous stent. Labs in ED revealed
mildly elevated T Bili 1.[address] Abd/pelvis with slight dilation of the CHD and CBD measuring up to 12 mm. She is intermediate risk for choledocholithiasis and advised MRI/MRCP. Otherwise, no signs of biliary sepsis and/or cholangitis.
S/p MRI/MRCP 04/19/24: Prior CCY, prominence of the CBD measuring 1.2 cm without evidence of choledocholithiasis or discrete obstruction, the intrahepatic bile ducts appear within normal limits; unremarkable pancreas with normal caliber of PD, normal
liver morphology with hepatic cysts. Repeat LFTs this AM reassuring.
Recommendations:
- May ADAT to low-fat diet, if tolerating diet this afternoon may be follow-up with GI as outpatient
- MRI/MRCP (-) for sludge and/or choledocholithiasis seen on recent imaging
- Suspect previous biliary ductal dilatation in setting of prior CCY as her symptoms were not typical for biliary colic
- LFTs without evidence of biliary obstruction only mildly T Bili. Can add-on direct and indirect for completion
- Pain control and [id number] PRN
- Rest of care per primary team
Discussed with primary internal medicine team this AM.
GI team will sign-off. Please call back with any questions or concerns.
Subjective
Subjective
Date of Service: April 20, 2024
- S/p MRI/MRCP 04/19/24: Prior CCY, prominence of the CBD measuring 1.2 cm without evidence of choledocholithiasis or discrete obstruction, the intrahepatic bile ducts appear within normal limits; unremarkable pancreas with normal caliber of PD,
normal liver morphology with hepatic cysts
- Repeat AM LFTs pending
- Otherwise, no acute events overnight
Feeling well this morning, denies any further discomfort early this AM or nausea/vomiting. No fevers, chills or other constitutional symptoms.
Objective
Data Reviewed
Laboratory Data:
Laboratory Results
Total Bilirubin 1.4 mg/dl (0.2-1.3) H 04/19/24 09:18
AST 29 U/L (14-36) 04/19/24 09:18
ALT 18 U/L (0-35) 04/19/24 09:18
Alkaline Phosphatase 129 U/L (38-126) H 04/19/24 09:18
Lipase 87 U/L (23-300) 04/19/24 09:18
Vital Signs and I&O:
Vital Signs
Temp Pulse Resp BP Pulse Ox
98.0 F 76 18 100/50 98
04/19/24 23:50 04/19/24 23:50 04/19/24 23:50 04/19/24 23:50 04/19/24 23:50
I&O
04/18/24 04/19/24 04/20/24
06:59 06:59 06:59
Intake Total 360 / 360
Balance 360 / 360
Physical Exam
Physical Exam
HEENT: Anicteric and Moist mucous membranes
Cardiology: Normal Sinus Rhythm
Pulmonary: Clear
GI: Soft, Non Distended and Non Tender
Extremities: No Edema
Neuro: Non Focal
[2024-04-20] MEDS: SYNTHROID 137 MCG PO (06:04)
[2024-04-20 06:28] LABS: Hematocrit 33.9 % (37.0-47.0); Hemoglobin 11.7 g/dL (12.0-16.0); Mean Corp Hgb Conc. 34.5 g/dL (33.0-37.0); Mean Corpuscular Hgb 35.1 pg (27.0-31.0); Mean Corpuscular Volume 101.8 fL (81.0-99.0); Mean Platelet Volume 10.2 fL (7.4-10.4); Platelet Count 292 10^3/uL (130-400); Red Blood Cell Count 3.33 10^6/uL (4.20-5.40); Red Cell Dist. Width 14.8 % (11.5-14.5); White Blood Cell Count 5.1 10^3/uL (4.8-10.8)
[2024-04-20 06:51] LABS: ALT (SGPT) 17 U/L (0-35); AST (SGOT) 31 U/L (14-36); Albumin 4.2 g/dl (3.5-5.0); Alkaline Phosphatase 90 U/L (38-126); Blood Urea Nitrogen 14 mg/dl (7-17); Calcium 9.3 mg/dl (8.4-10.2); Carbon Dioxide 30 mmol/L (22-30); Chloride 99 mmol/L (98-107); Estimated Creatinine Clearance 66 ml/min; Glucose 94 mg/dl (70-99); Magnesium 2.1 mg/dl (1.6-2.3); Potassium 3.9 mmol/L (3.5-5.1); Sodium 141 mmol/L (135-145); Total Bilirubin 1.6 mg/dl (0.2-1.3); Total Protein 6.7 g/dl (6.3-8.2); eGFR > 60.00
[2024-04-20] MEDS: TOPROL XL 100 MG PO (07:40)
[2024-04-20] MEDS: NORVASC 5 MG PO (07:40)
[2024-04-20] MEDS: VITAMIN D3 (cholecalciferol) 25 MCG PO (07:40)
[2024-04-20] MEDS: IMDUR (EXTENDED RELEASE) 30 MG PO (07:40)
[2024-04-20 07:45] VITALS: BP 144/78
--- NOTE | 2024-04-20 08:28 | W.PN.HOSP.TC ---
Today's Communication/Plan
-
Discharge planning today
Assessment / Plan
Assessment / Plan
Physical exam:
General: Well Developed, Well Nourished and No Apparent Distress
HEENT: Normocephalic, Atraumatic and Moist Mucous Membranes
Respiratory: Clear to Auscultation; Negative Wheezes, Rales or Rhonchi
Cardiac: Regular Rhythm and S1/S2
GI: Soft, Nontender and Nondistended
Musculoskeletal: No Clubbing, No Cyanosis and No Edema
Neuro: Awake, Alert and Oriented
Psych: Calm
A/P:
Abdominal/Flank Pain - Mildly elevated Total Bilirubin, and Mildly dilated CBD
-Consult GI appreciated. Discussed with GI on 04/20 and she is cleared for discharge today.
-Patient had low-fat diet without any problems.
-Checked Abd MRI/MRCP and no acute abnormality
-Discharge planning today
Coronary Artery Disease s/p LAD Stent in December 2023
-Continue aspirin and Plavix
-Continue isosorbide mononitrate
Essential Hypertension
-Continue amlodipine and Toprol XL
-Hold HCTZ
Hyperlipidemia
-Continue Crestor
GERD / Prior H. Pylori
-Continue Protonix
Depression
-Continue duloxetine
Hx Thyroid Cancer s/p Thyroidectomy
-Continue levothyroxine
DVT Proph: SCDs
Code Status: Full Code
Anticipated Discharge: Today
Subjective/Interval History
-
Date of Service: April 20, 2024
Patient denies abdominal pain
Objective Data
-
Labs:
Laboratory Results
04/20/24
05:31
WBC 5.1
Hgb 11.7 L
Hct 33.9 L
Plt Count 292
Sodium 141
Potassium 3.9
Chloride 99
Carbon Dioxide 30
BUN 14
Creatinine 0.7
Glucose 94
Calcium 9.3
Total Bilirubin 1.6 H
AST 31
ALT 17
Alkaline Phosphatase 90
Vital Signs:
Vital Signs
Temp Pulse Resp BP Pulse Ox
97.4 F 70 16 144/78 94
04/20/24 07:45 04/20/24 07:45 04/20/24 07:45 04/20/24 07:45 04/20/24 07:45
I&O
04/19/24 04/20/24 04/21/24
06:59 06:59 06:59
Intake Total 600 / 600
Balance 600 / 600
--- NOTE | 2024-04-20 09:46 | W.DCSUMMARY ---
Discharge Summary
Discharge Data
Date of Admission: 04/19/24
Date of Discharge: 04/20/24
-
Pending Results: No
Hospital Course
Patient is 78 years old female history of CAD, GERD, hypertension, hyperlipidemia, hypothyroidism, came into the hospital with abdominal pain. Patient had a prior history of CCY and no fevers or chills or GI bleed upon presentation but mildly
elevated T bilirubin and slight dilation of the CBD on CT of the abdomen. GI was consulted. Patient was started on clear liquid diet and no antibiotics were given. Patient also underwent MRCP. MRCP shows prominence of the common bile duct but no
evidence of choledocholithiasis or discrete obstruction and the intrahepatic bile ducts appear within normal limits. Patient was able to be advanced diet to low-fat diet and she tolerated without any problems. GI has cleared her for discharge
today. No other events were noticed. Patient has been discharged in stable condition today.
Discharge Plan
-
Patient Disposition: Home (Routine Discharge)
Discharge Diagnosis/Procedures: Abdominal pain. Hypokalemia. History of coronary artery disease
Diet: Low Fat
Activity: As tolerated
Blood Work: Please PCP to order CBC, CMP within 1 week
Referrals:
Miguel Washington MD [Family Provider] - in less than 1 week
Royer Navarro DO [Active] - in two to four weeks
Prescriptions:
Continued
multivitamin Tablet
1 tab PO DAILY
isosorbide mononitrate 30 mg Tablet Extended Release 24 Hr
30 mg PO DAILY
metoprolol succinate [Toprol XL] 100 mg Tablet Extended Release 24 Hr
100 mg PO DAILY
lorazepam 0.5 mg Tablet
0.5 mg PO TIDPRN PRN (Reason: anxiety )
nitroglycerin 0.4 mg Tablet, Sublingual
0.4 mg SUBLINGUAL [id number] PRN (Reason: chest pain )
hydrochlorothiazide 25 mg Tablet
25 mg PO DAILY
estradiol 0.01 % (0.1 mg/gram) Cream
1 g VAGINAL SUWE
rosuvastatin 20 mg Tablet
20 mg PO HS
duloxetine 60 mg Capsule,Delayed Release(Dr/Ec)
60 mg PO HS
levothyroxine 137 mcg Tablet
137 mcg PO SUMOTUWETHFR
cholecalciferol (vitamin D3) [Vitamin D3] 25 mcg (1,000 unit) Tablet,Chewable
25 mcg PO DAILY
acetaminophen [Tylenol] 325 mg Tablet
650 mg PO Q4HPRN PRN (Reason: mild pain)
amlodipine [Norvasc] 5 mg Tablet
5 mg PO DAILY
aspirin 81 mg Tablet,Delayed Release (Dr/Ec)
81 mg PO QPM
phenazopyridine 95 mg Tablet
95 mg PO QPM
Visbiome 112.5 billion cell Capsule
1 cap PO QPM
clopidogrel 75 mg tablet
75 mg PO QPM
pantoprazole 40 mg tablet,delayed release (DR/EC)
40 mg PO QPM
polyethylene glycol 3350 [Miralax] 17 gram Powder In Packet
17 g PO Q48H
Discharge Orders:
Discharge Patient (As Directed); Ordered 04/20/24
Ordered By: Raymon Ceballos
Discharge Date and Time
Discharge Date/Time: 04/20/24 10:37
Print Language: SETSWANA
[2024-04-20 09:54] LABS: Direct Bilirubin 0.3 mg/dl (0.0-0.4)
--- NOTE | 2024-04-20 10:39 | CM ---
Addendum entered by Yana Bee RN 04/20/24 10:46:
[facility] letter given reviewed signed on chart,
Original Note:
alert awake oriented patient who lives alone with no steps to enter and has an elevator.She is independent with driving and all ADLs.Offered Substance abuse counselling she declined but she did take a [facility] handout. Offered Vn she declined.She
will drive herself home today.
No adaptive devices.
No SNF /VN hx.
Pharmacy [facility] [place].
PCP Dr Miguel Washington
PLAN Home no needs
== END 2024-04-20 10:37 | disposition home or self-care (01) ==
LOC: 3 WEST ACU 14:07
PROVIDERS: Nurse Practitioner; Physician Assistant Medical; ADMITTING PHYSICIAN Hospitalist; ATTENDING PHYSICIAN Hospitalist; CONSULT PHYSICIAN Student in an Organized Health Care Education/Training Program; EMERGENCY PHYSICIAN Emergency Medicine; FAMILY PHYSICIAN Family Medicine
DX: K83.8 Other specified diseases of biliary tract (principal); R10.9 Unspecified abdominal pain; I25.10 Atherosclerotic heart disease of native coronary artery without angina pectoris; I10 Essential (primary) hypertension; G47.30 Sleep apnea, unspecified; K57.30 Diverticulosis of large intestine without perforation or abscess without bleeding; K92.1 Melena; F32.A Depression, unspecified; R07.81 Pleurodynia; K44.9 Diaphragmatic hernia without obstruction or gangrene; J98.11 Atelectasis; I34.81 Nonrheumatic mitral (valve) annulus calcification; N28.1 Cyst of kidney, acquired; M43.16 Spondylolisthesis, lumbar region; I70.0 Atherosclerosis of aorta; M54.9 Dorsalgia, unspecified; E87.6 Hypokalemia; E89.0 Postprocedural hypothyroidism; E78.00 Pure hypercholesterolemia, unspecified; R10.11 Right upper quadrant pain; K21.9 Gastro-esophageal reflux disease without esophagitis; Z90.49 Acquired absence of other specified parts of digestive tract; Z90.89 Acquired absence of other organs; Z85.850 Personal history of malignant neoplasm of thyroid; Z79.82 Long term (current) use of aspirin; Z79.02 Long term (current) use of antithrombotics/antiplatelets; Z95.5 Presence of coronary angioplasty implant and graft; Z87.440 Personal history of urinary (tract) infections; Z80.0 Family history of malignant neoplasm of digestive organs; Z88.1 Allergy status to other antibiotic agents; Z88.3 Allergy status to other anti-infective agents; Z88.5 Allergy status to narcotic agent; Z88.2 Allergy status to sulfonamides; Z88.8 Allergy status to other drugs, medicaments and biological substances; Z91.018 Allergy to other foods; Z86.19 Personal history of other infectious and parasitic diseases; Z82.49 Family history of ischemic heart disease and other diseases of the circulatory system; Z80.41 Family history of malignant neoplasm of ovary; Z60.2 Problems related to living alone
CPT/HCPCS: 74176; 74183; 80053; 81003; 81015; 82248; 83690; 83735; 84484; 85025; 85027; 85379; 87086; 93005; 99285; A9575

== ENCOUNTER → 2024-05-24 13:09 | Outpatient (REF) | payer MEDICARE, BC, SELFPAY | LOC: HWRAD 13:09 | PROVIDERS: ATTENDING PHYSICIAN Internal Medicine Cardiovascular Disease; FAMILY PHYSICIAN Family Medicine | DX: I65.29 Occlusion and stenosis of unspecified carotid artery (principal); I65.23 Occlusion and stenosis of bilateral carotid arteries | CPT/HCPCS: 93880 ==

== ENCOUNTER → 2024-06-14 11:20 | Outpatient (REF) | payer MEDICARE, BC, SELFPAY | LOC: HWWDC 11:20 | PROVIDERS: ATTENDING PHYSICIAN Obstetrics & Gynecology Gynecology; FAMILY PHYSICIAN Family Medicine | DX: Z12.31 Encounter for screening mammogram for malignant neoplasm of breast (principal) | CPT/HCPCS: 77063; 77067 ==

== ENCOUNTER → 2024-07-04 07:44 | Outpatient (REF) | payer MEDICARE, BC, SELFPAY | LOC: PAVMRI 07:44 | PROVIDERS: ATTENDING PHYSICIAN Pain Medicine Interventional Pain Medicine; FAMILY PHYSICIAN Family Medicine | DX: M54.16 Radiculopathy, lumbar region (principal); M54.12 Radiculopathy, cervical region | CPT/HCPCS: 72141; 72148 ==

== ENCOUNTER → 2024-08-16 10:52 | Outpatient (REF) | payer MEDICARE, BC, SELFPAY | LOC: HWRAD 10:52 | PROVIDERS: ATTENDING PHYSICIAN Surgery; FAMILY PHYSICIAN Family Medicine | DX: N28.1 Cyst of kidney, acquired (principal) | CPT/HCPCS: 76775 ==